=== PATIENT | male | born 1945 | race Caucasian/White ===

== ENCOUNTER 2016-09-08 20:39 | Inpatient (IN) | payer MEDICARE, MEDICAID ==
[~2016-09-08] VITALS: Ht 170.2 cm; Wt 62.6 kg
[~2016-09-08 20:39] MED LIST: ALBU2.5V38 HHN; AMIN887L PO; DIVA500T2 PO; DOCU-141 PO; HYDR1TAB70 PO; LATA2.5D2 EACHEYE; METO25TA50 PO; MULT1TAB11 PO; OMEP20CA10 PO; TEMA15CA5 PO; [UNRECOGNIZED DRUG - CODE] PO
--- NOTE | 2016-09-08 20:55 | NUR ---
Pt ambulated to room with slow steady shuffled gait. Pt brought in by DTS on a 5150 for SI. Pt requires medical clearance before transferring to mental health unit. Pt resting in position of comfrt for self. No obvious signs of distress at this time. Pt calm and cooperative. Sitter at bedside.
[2016-09-08 22:24] LABS: BASOPHILS % (AUTO) 0.4 % (0.0-2.0); EOSINOPHILS # (AUTO) 0.2 K/uL (0.0-0.7); EOSINOPHILS % (AUTO) 2.9 % (0.0-7.0); HEMATOCRIT 39.1 % (40-50); HEMOGLOBIN 12.8 G/DL (14.0-18.0); LYMPHOCYTES # (AUTO) 1.4 K/UL (0.8-4.8); LYMPHOCYTES % (AUTO) 24.5 % (20.5-51.5); MEAN CORPUSCULAR HEMOGLOBIN 27.7 UUG (27.0-31.0); MEAN CORPUSCULAR HGB CONC 33 g/dL (32.0-37.0); MEAN CORPUSCULAR VOLUME 84.8 FL (82.0-92.0); MONOCYTES # (AUTO) 0.3 K/UL (0.1-1.30); MONOCYTES % (AUTO) 5.8 % (0.0-11.0); NEUTROPHILS % (AUTO) 66.4 % (38.5-71.5); PLATELET COUNT (AUTO) 153 K/UL (150-450); RED BLOOD CELL COUNT(AUTO) 4.62 MIL/UL (4.7-6.1); WHITE BLOOD COUNT (AUTO) 5.9 K/UL (4.0-11.2)
[2016-09-08 22:26] LABS: CARBON DIOXIDE 29 mmol/L (21-32); CHLORIDE 107 mmol/L (98-107); CREATININE 0.8 mg/dL (0.6-1.3); GLUCOSE 99 mg/dL (74-106); UREA NITROGEN, BLOOD 11 mg/dL (7-18)
[2016-09-08 22:27] LABS: ETHANOL < 3 MG/DL (0-0)
[2016-09-08 22:32] LABS: ACETAMINOPHEN < 2.0 ug/mL (10-30); ALANINE AMINOTRANSFERASE 14 U/L (16-63); ALKALINE PHOSPHATASE 83 U/L (50-136); ASPARTATE AMINOTRANSFERASE 16 U/L (15-37); BILIRUBIN,DIRECT 0.1 mg/dL (0.0-0.2); BILIRUBIN,TOTAL 0.4 mg/dL (0.2-1.0); TOTAL PROTEIN, SERUM 7.4 g/dL (6.4-8.2)
[2016-09-08] MEDS ORDERED: GABA-532 PO (22:46)
[2016-09-08] MEDS ORDERED: OLAN7.5T3 PO (22:46)
[2016-09-08] MEDS ORDERED: GABA-534 PO (22:46)
[2016-09-08] MEDS ORDERED: CALC-1095 PO (22:46)
--- NOTE | 2016-09-08 22:55 | NUR ---
Pt resting in position of comfort for self. Pt c/o leg pain, MD notified. Awaiting further orders.
--- NOTE | 2016-09-08 22:58 | NUR ---
Pt medically cleared for admission per Dr. Cruz
[2016-09-08] MEDS ORDERED: HYDROCODONE/APAP 5-325MG TABLET PO ONE (23:00)
--- NOTE | 2016-09-08 23:12 | NUR ---
Report called to ANIKA Evans. Preparing to transfer pt to the floor
[2016-09-08 23:16] LABS: THYROID STIMULATING HORMONE 1.721 mIU/mL (0.358-3.740)
[2016-09-08] MEDS ORDERED: HYDROCODONE/APAP 5-325MG TABLET ONE (23:18)
--- NOTE | 2016-09-08 23:40 | NUR ---
Report received from ANKIA Cueva. Patient arrived on unit awake and alert. Patient is able to verbalize needs. Patients vital signs are WNL. PERRLA. Respirations are clear ,symmetrical and unlabored. No pain reported when asked. Skin is warm ,pink, dry and intact. No signs of distress. will continue to monitor
[2016-09-08 23:42] VITALS: BP 140/84
[2016-09-09] MEDS ORDERED: CLONAZEPAM 0.5 MG TABLET PO PRN (00:30)
[2016-09-09] MEDS ORDERED: MAG HYDROX/AL HYDROX/SIMETH 30 ML LIQUID UDC PO PRN (00:30)
[2016-09-09] MEDS ORDERED: ACETAMINOPHEN 325 MG TABLET PO PRN (00:30)
[2016-09-09] MEDS ORDERED: MAGNESIUM HYDROXIDE 30 ML LIQUID UDC PO PRN (00:30)
[2016-09-09] MEDS ORDERED: TEMAZEPAM 7.5 MG CAPSULE PO PRN (00:30)
[2016-09-09 07:30] VITALS: BP 122/61
--- NOTE | 2016-09-09 11:17 | NUR ---
GPS.RN- [facility] NOTIFIED OF MED RECON THIS AM. PATIENT WITH PAIN THIS AM, BACK PAIN , PAIN IS 7 OUT OF 10, REFUSED TYLENOL. SPOKE WITH [facility] N.P., ONE TIME ORDER RECEIVED FOR NORCO 5-325MG PO ONCE
[2016-09-09] MEDS ORDERED: HYDROCODONE/APAP 5-325MG TABLET PO ONE (11:30)
--- NOTE | 2016-09-09 15:29 | NUR ---
initial discharge instructions: Pt was residing at [facility] [[address] [place], [place]].Per pt,he does not want to return back the facility,and is interested in being placed at a Board and Care.There is no contact information in the chart regarding pt's EVELIN.SW will speak with pt and MD regarding appropriate discharge plans.SW will form a safe and proper discharge.
[2016-09-09 16:00] VITALS: BP 108/71
[2016-09-09] MEDS: ESCITALOPRAM OXALATE 10 MG TABLET PO SCH (16:17)
[2016-09-09] MEDS: OLANZAPINE 5 MG TABLET PO SCH (16:17)
[2016-09-09] MEDS: HYDROCODONE/APAP 5-325MG TABLET PO PRN (17:58)
[2016-09-09] MEDS: DIVALPROEX ER 500 MG TAB.SR.24H PO SCH (20:32)
[2016-09-09] MEDS: ATORVASTATIN 20 MG TABLET PO SCH (20:32)
[2016-09-09 21:05] VITALS: BP 111/73
[2016-09-10 07:30] VITALS: BP_SYST 111; BP_SYST 112; BP_DIAS 68
[2016-09-10] MEDS: OLANZAPINE 5 MG TABLET PO SCH ×2 (08:24→16:28)
[2016-09-10] MEDS: DOCUSATE SODIUM 100 MG CAPSULE PO SCH (08:24)
[2016-09-10] MEDS: ASPIRIN 81 MG TAB.CHEW PO SCH (08:25)
[2016-09-10] MEDS: CALCIUM CARB/VITAMIN D 500MG-200UNITS TABLET PO SCH (08:25)
[2016-09-10] MEDS: ESCITALOPRAM OXALATE 10 MG TABLET PO SCH (08:25)
[2016-09-10] MEDS: HYDROCODONE/APAP 5-325MG TABLET PO PRN ×3 (08:25→21:32)
[2016-09-10] MEDS: GABAPENTIN 300 MG CAPSULE PO SCH ×3 (08:25→16:28)
[2016-09-10 15:50] VITALS: BP_SYST 100; BP_SYST 113; BP_DIAS 75; BP_DIAS 76
[2016-09-10] MEDS: DIVALPROEX ER 500 MG TAB.SR.24H PO SCH (20:07)
[2016-09-10] MEDS: ATORVASTATIN 20 MG TABLET PO SCH (20:07)
[2016-09-10 20:59] VITALS: BP 128/84
[2016-09-11 07:30] VITALS: BP 102/56
[2016-09-11] MEDS: OLANZAPINE 5 MG TABLET PO SCH ×2 (08:51→17:07)
[2016-09-11] MEDS: ASPIRIN 81 MG TAB.CHEW PO SCH (08:51)
[2016-09-11] MEDS: GABAPENTIN 300 MG CAPSULE PO SCH ×3 (08:51→17:07)
[2016-09-11] MEDS: CALCIUM CARB/VITAMIN D 500MG-200UNITS TABLET PO SCH (08:51)
[2016-09-11] MEDS: DOCUSATE SODIUM 100 MG CAPSULE PO SCH (08:51)
[2016-09-11] MEDS: ESCITALOPRAM OXALATE 10 MG TABLET PO SCH (08:51)
[2016-09-11] MEDS: HYDROCODONE/APAP 5-325MG TABLET PO PRN ×2 (13:02→21:40)
[2016-09-11 16:00] VITALS: BP 122/76
[2016-09-11] MEDS: ATORVASTATIN 20 MG TABLET PO SCH (20:17)
[2016-09-11] MEDS: DIVALPROEX ER 500 MG TAB.SR.24H PO SCH (20:17)
[2016-09-11 21:44] VITALS: BP 128/84
[2016-09-12 08:30] VITALS: BP 110/66
[2016-09-12] MEDS: GABAPENTIN 300 MG CAPSULE PO SCH ×3 (08:40→16:17)
[2016-09-12] MEDS: OLANZAPINE 5 MG TABLET PO SCH ×2 (08:41→16:17)
[2016-09-12] MEDS: ESCITALOPRAM OXALATE 10 MG TABLET PO SCH (08:41)
[2016-09-12] MEDS: ASPIRIN 81 MG TAB.CHEW PO SCH (08:41)
[2016-09-12] MEDS: DOCUSATE SODIUM 100 MG CAPSULE PO SCH (08:41)
[2016-09-12] MEDS: CALCIUM CARB/VITAMIN D 500MG-200UNITS TABLET PO SCH (08:41)
[2016-09-12] MEDS: HYDROCODONE/APAP 5-325MG TABLET PO PRN ×2 (09:42→15:49)
[2016-09-12 16:00] VITALS: BP 99/75
[2016-09-12] MEDS: ATORVASTATIN 20 MG TABLET PO SCH (20:26)
[2016-09-12] MEDS: DIVALPROEX ER 500 MG TAB.SR.24H PO SCH (20:26)
[2016-09-12 20:57] VITALS: BP 112/60
[2016-09-13 07:30] VITALS: BP 116/74
[2016-09-13] MEDS: DOCUSATE SODIUM 100 MG CAPSULE PO SCH (08:42)
[2016-09-13] MEDS: ASPIRIN 81 MG TAB.CHEW PO SCH (08:42)
[2016-09-13 08:43] LABS: CARBON DIOXIDE 30 mmol/L (21-32); CHLORIDE 108 mmol/L (98-107); CREATININE 0.7 mg/dL (0.6-1.3); GLUCOSE 86 mg/dL (74-106); MAGNESIUM 1.6 mg/dL (1.8-2.4); POTASSIUM 4.1 mmol/L (3.5-5.1); UREA NITROGEN, BLOOD 8 mg/dL (7-18)
[2016-09-13] MEDS: CALCIUM CARB/VITAMIN D 500MG-200UNITS TABLET PO SCH (08:43)
[2016-09-13] MEDS: OLANZAPINE 5 MG TABLET PO SCH ×2 (08:43→16:48)
[2016-09-13] MEDS: GABAPENTIN 300 MG CAPSULE PO SCH ×3 (08:43→16:48)
[2016-09-13] MEDS: HYDROCODONE/APAP 5-325MG TABLET PO PRN ×2 (08:48→15:10)
[2016-09-13] MEDS ORDERED: ESCITALOPRAM OXALATE 10 MG TABLET PO SCH (09:00)
[2016-09-13 09:13] LABS: BASOPHILS % (AUTO) 0.6 % (0.0-2.0); EOSINOPHILS # (AUTO) 0.1 K/uL (0.0-0.7); EOSINOPHILS % (AUTO) 2.2 % (0.0-7.0); HEMATOCRIT 39.3 % (40-50); HEMOGLOBIN 12.7 G/DL (14.0-18.0); LYMPHOCYTES % (AUTO) 17.6 % (20.5-51.5); MEAN CORPUSCULAR HEMOGLOBIN 27.6 UUG (27.0-31.0); MEAN CORPUSCULAR HGB CONC 32 g/dL (32.0-37.0); MEAN CORPUSCULAR VOLUME 85.2 FL (82.0-92.0); MONOCYTES # (AUTO) 0.5 K/UL (0.1-1.30); MONOCYTES % (AUTO) 7.7 % (0.0-11.0); NEUTROPHILS # (AUTO) 4.3 K/UL (1.8-8.9); NEUTROPHILS % (AUTO) 71.9 % (38.5-71.5); PLATELET COUNT (AUTO) 118 K/UL (150-450); RED BLOOD CELL COUNT(AUTO) 4.61 MIL/UL (4.7-6.1); WHITE BLOOD COUNT (AUTO) 5.9 K/UL (4.0-11.2)
[2016-09-13] MEDS ORDERED: MAGNESIUM OXIDE 400 MG TABLET PO ONE (15:00)
[2016-09-13 15:35] VITALS: BP 107/64
[2016-09-13] MEDS: ATORVASTATIN 20 MG TABLET PO SCH (20:11)
[2016-09-13] MEDS: DIVALPROEX ER 500 MG TAB.SR.24H PO SCH (20:11)
[2016-09-13 20:15] VITALS: BP 101/71
[2016-09-14 07:30] VITALS: BP 112/61
[2016-09-14] MEDS: CALCIUM CARB/VITAMIN D 500MG-200UNITS TABLET PO SCH (08:53)
[2016-09-14] MEDS: ASPIRIN 81 MG TAB.CHEW PO SCH (08:53)
[2016-09-14] MEDS: DOCUSATE SODIUM 100 MG CAPSULE PO SCH (08:53)
[2016-09-14] MEDS: GABAPENTIN 300 MG CAPSULE PO SCH ×3 (08:53→16:04)
[2016-09-14] MEDS: ESCITALOPRAM OXALATE 10 MG TABLET PO SCH (08:53)
[2016-09-14] MEDS: OLANZAPINE 5 MG TABLET PO SCH ×2 (08:53→16:04)
[2016-09-14] MEDS: HYDROCODONE/APAP 5-325MG TABLET PO PRN ×3 (08:54→21:10)
[2016-09-14 15:47] VITALS: BP 112/54
[2016-09-14 20:00] VITALS: BP 128/75
[2016-09-14] MEDS: ATORVASTATIN 20 MG TABLET PO SCH (20:14)
[2016-09-14] MEDS: DIVALPROEX ER 500 MG TAB.SR.24H PO SCH (20:14)
[2016-09-14 21:38] LABS: *BILIRUBIN,URIN NEGATIVE (NEGATIVE); *BLOOD, URINE Trace-intact (NEGATIVE); *COLOR,URINE YELLOW (YELLOW); *KETONES,URINE NEGATIVE (NEGATIVE); *PROTEIN,URINE NEGATIVE (NEGATIVE); *UROBILINOGEN,URINE 0.2 E.U./dl (NORMAL); LEUKOCYTE ESTERASE ,URINE 2+ (NEGATIVE); NITRITE, URINE NEGATIVE (NEGATIVE); UGLUCOSE NEGATIVE (NEGATIVE)
[2016-09-14 21:46] LABS: *CLARITY,URINE HAZY (CLEAR)
[2016-09-14 22:03] LABS: BACTERIA,URINE FEW /HPF (NONE SEEN); SQUAMOUS EPITHELIAL CELL,UR FEW /HPF (NONE SEEN); WBC,URINE 50-80 /HPF (0-3)
[2016-09-15 07:30] VITALS: BP 108/61
[2016-09-15] MEDS: GABAPENTIN 300 MG CAPSULE PO SCH ×3 (08:08→16:50)
[2016-09-15] MEDS: ASPIRIN 81 MG TAB.CHEW PO SCH (08:08)
[2016-09-15] MEDS: CALCIUM CARB/VITAMIN D 500MG-200UNITS TABLET PO SCH (08:08)
[2016-09-15] MEDS: DOCUSATE SODIUM 100 MG CAPSULE PO SCH (08:08)
[2016-09-15] MEDS: OLANZAPINE 5 MG TABLET PO SCH ×2 (08:08→16:50)
[2016-09-15] MEDS: ESCITALOPRAM OXALATE 10 MG TABLET PO SCH (08:08)
[2016-09-15] MEDS: HYDROCODONE/APAP 5-325MG TABLET PO PRN ×3 (10:04→21:41)
[2016-09-15] MEDS: CEPHALEXIN MONOHYDRATE 500 MG CAPSULE PO SCH ×3 (11:31→21:36)
[2016-09-15 16:00] VITALS: BP 97/54
[2016-09-15 20:54] VITALS: BP 102/60
[2016-09-15] MEDS: ATORVASTATIN 20 MG TABLET PO SCH (21:36)
[2016-09-15] MEDS: DIVALPROEX ER 500 MG TAB.SR.24H PO SCH (21:36)
--- NOTE | 2016-09-15 22:30 | NUR ---
received to care, lying in bed, pleasant upon approach. remains isolative, but able to make his needs known, to staff. compliant with medications, and staff direction. PRN norco was given at 2140, for lower back pain, 7/10 on pain scale. as of 2229. he appears to be asleep. no distress noted. will continue to monitor closely.
--- NOTE | 2016-09-16 06:00 | NUR ---
slept 8.5 hours. currently being assisted with a shower, and AM care. no distress noted. will continue to monitor closely.
[2016-09-16] MEDS: CEPHALEXIN MONOHYDRATE 500 MG CAPSULE PO SCH ×3 (06:01→21:21)
[2016-09-16] MEDS: HYDROCODONE/APAP 5-325MG TABLET PO PRN ×3 (06:02→17:52)
[2016-09-16 07:30] VITALS: BP 117/73
[2016-09-16] MEDS: GABAPENTIN 300 MG CAPSULE PO SCH ×3 (08:04→16:21)
[2016-09-16] MEDS: CALCIUM CARB/VITAMIN D 500MG-200UNITS TABLET PO SCH (08:04)
[2016-09-16] MEDS: DOCUSATE SODIUM 100 MG CAPSULE PO SCH (08:04)
[2016-09-16] MEDS: ESCITALOPRAM OXALATE 10 MG TABLET PO SCH (08:04)
[2016-09-16] MEDS: OLANZAPINE 5 MG TABLET PO SCH ×2 (08:04→16:21)
[2016-09-16] MEDS: ASPIRIN 81 MG TAB.CHEW PO SCH (08:04)
[2016-09-16 16:09] VITALS: BP 129/78
[2016-09-16 19:30] VITALS: BP 110/66
[2016-09-16] MEDS: ATORVASTATIN 20 MG TABLET PO SCH (21:20)
[2016-09-16] MEDS: DIVALPROEX ER 500 MG TAB.SR.24H PO SCH (21:21)
--- NOTE | 2016-09-16 22:00 | NUR ---
received to care, lying in bed, pleasant upon approach. denies SI, or the desire to harm self. remains isolative, but able to make his needs known, to staff. compliant with medications, and staff direction. as of 2199. he appears to be asleep. no distress noted. will continue to monitor closely.
[2016-09-17] MEDS: CEPHALEXIN MONOHYDRATE 500 MG CAPSULE PO SCH ×2 (06:06→14:07)
[2016-09-17] MEDS: HYDROCODONE/APAP 5-325MG TABLET PO PRN ×3 (06:11→18:59)
--- NOTE | 2016-09-17 06:11 | NUR ---
pt is now awake. slept 7.5 hours, total. c/o pain to the bilateral legs, 8/10 on pain scale; PRN norco was given at this time.
[2016-09-17 07:30] VITALS: BP 123/72
[2016-09-17 07:45] LABS: BASOPHILS % (AUTO) 0.8 % (0.0-2.0); EOSINOPHILS # (AUTO) 0.1 K/uL (0.0-0.7); EOSINOPHILS % (AUTO) 3.2 % (0.0-7.0); HEMATOCRIT 38.9 % (40-50); HEMOGLOBIN 12.9 G/DL (14.0-18.0); LYMPHOCYTES # (AUTO) 1.2 K/UL (0.8-4.8); LYMPHOCYTES % (AUTO) 26.8 % (20.5-51.5); MEAN CORPUSCULAR HEMOGLOBIN 27.9 UUG (27.0-31.0); MEAN CORPUSCULAR HGB CONC 33 g/dL (32.0-37.0); MONOCYTES # (AUTO) 0.5 K/UL (0.1-1.30); MONOCYTES % (AUTO) 10.2 % (0.0-11.0); NEUTROPHILS # (AUTO) 2.7 K/UL (1.8-8.9); PLATELET COUNT (AUTO) 101 K/UL (150-450); RED BLOOD CELL COUNT(AUTO) 4.63 MIL/UL (4.7-6.1); WHITE BLOOD COUNT (AUTO) 4.5 K/UL (4.0-11.2)
[2016-09-17 08:22] LABS: ALANINE AMINOTRANSFERASE 16 U/L (16-63); ALKALINE PHOSPHATASE 83 U/L (50-136); ASPARTATE AMINOTRANSFERASE 16 U/L (15-37); BILIRUBIN,TOTAL 0.4 mg/dL (0.2-1.0); CARBON DIOXIDE 30 mmol/L (21-32); CHLORIDE 107 mmol/L (98-107); CREATININE 0.7 mg/dL (0.6-1.3); GLUCOSE 87 mg/dL (74-106); MAGNESIUM 1.7 mg/dL (1.8-2.4); POTASSIUM 4.1 mmol/L (3.5-5.1); TOTAL PROTEIN, SERUM 7.1 g/dL (6.4-8.2); UREA NITROGEN, BLOOD 9 mg/dL (7-18)
[2016-09-17] MEDS: DOCUSATE SODIUM 100 MG CAPSULE PO SCH ×2 (09:00→10:08)
[2016-09-17] MEDS: ESCITALOPRAM OXALATE 10 MG TABLET PO SCH (10:07)
[2016-09-17] MEDS: GABAPENTIN 300 MG CAPSULE PO SCH ×3 (10:07→17:14)
[2016-09-17] MEDS: CALCIUM CARB/VITAMIN D 500MG-200UNITS TABLET PO SCH (10:07)
[2016-09-17] MEDS: OLANZAPINE 5 MG TABLET PO SCH ×2 (10:07→17:20)
[2016-09-17] MEDS: ASPIRIN 81 MG TAB.CHEW PO SCH (10:08)
[2016-09-17] MEDS ORDERED: MAGNESIUM OXIDE 400 MG TABLET PO ONE (14:15)
[2016-09-17 17:08] VITALS: BP 101/65
[2016-09-17] MEDS: SULFAMETH/TRIMETH 800/160 MG TABLET PO SCH ×2 (17:13→20:22)
[2016-09-17 19:51] VITALS: BP 130/73
[2016-09-17] MEDS: DIVALPROEX ER 500 MG TAB.SR.24H PO SCH (20:22)
[2016-09-17] MEDS: ATORVASTATIN 20 MG TABLET PO SCH (20:22)
[2016-09-18] MEDS: HYDROCODONE/APAP 5-325MG TABLET PO PRN ×3 (04:09→18:06)
--- NOTE | 2016-09-18 05:09 | NUR ---
GRIS salinas wa sgiven at 0409 for 09/20 pain to bilateral legs. as of 508, he denies any pain or discomfort.
--- NOTE | 2016-09-18 06:15 | NUR ---
slept 9 hours, total. assisted with AM care, and shower. currently lying in bed. no distress noted. will continue to monitor closely.
[2016-09-18 07:55] VITALS: BP 112/69
[2016-09-18] MEDS: ESCITALOPRAM OXALATE 10 MG TABLET PO SCH (08:06)
[2016-09-18] MEDS: SULFAMETH/TRIMETH 800/160 MG TABLET PO SCH ×2 (08:06→21:27)
[2016-09-18] MEDS: GABAPENTIN 300 MG CAPSULE PO SCH ×3 (08:06→16:52)
[2016-09-18] MEDS: ASPIRIN 81 MG TAB.CHEW PO SCH (08:06)
[2016-09-18] MEDS: CALCIUM CARB/VITAMIN D 500MG-200UNITS TABLET PO SCH (08:07)
[2016-09-18] MEDS: OLANZAPINE 5 MG TABLET PO SCH ×2 (08:07→16:52)
[2016-09-18] MEDS: DOCUSATE SODIUM 100 MG CAPSULE PO SCH (08:10)
[2016-09-18 20:14] VITALS: BP 96/52
[2016-09-18] MEDS: ATORVASTATIN 20 MG TABLET PO SCH (21:27)
[2016-09-18] MEDS: DIVALPROEX ER 500 MG TAB.SR.24H PO SCH (21:27)
[2016-09-19 07:30] VITALS: BP 123/70
[2016-09-19] MEDS: GABAPENTIN 300 MG CAPSULE PO SCH ×3 (08:38→16:45)
[2016-09-19] MEDS: OLANZAPINE 5 MG TABLET PO SCH ×2 (08:38→16:45)
[2016-09-19] MEDS: ASPIRIN 81 MG TAB.CHEW PO SCH (08:39)
[2016-09-19] MEDS: HYDROCODONE/APAP 5-325MG TABLET PO PRN ×2 (08:39→14:18)
[2016-09-19] MEDS: DOCUSATE SODIUM 100 MG CAPSULE PO SCH (08:39)
[2016-09-19] MEDS: ESCITALOPRAM OXALATE 10 MG TABLET PO SCH (08:39)
[2016-09-19] MEDS: CALCIUM CARB/VITAMIN D 500MG-200UNITS TABLET PO SCH (08:39)
[2016-09-19] MEDS: SULFAMETH/TRIMETH 800/160 MG TABLET PO SCH ×2 (08:39→20:16)
[2016-09-19 15:50] VITALS: BP 110/70
[2016-09-19] MEDS: ATORVASTATIN 20 MG TABLET PO SCH (20:16)
[2016-09-19] MEDS: DIVALPROEX ER 500 MG TAB.SR.24H PO SCH (20:16)
[2016-09-19 20:35] VITALS: BP 116/66
--- NOTE | 2016-09-19 21:07 | NUR ---
PATIENT RECEIVED IN BED AWAKE. PATIENT CALM AND PLEASENT UPON APPROACH. PATIENT DENIES SUICIDAL IDEATION, WILL CONTINUE TO MONITOR CHANGE IN BEHAVIOR. PATIENT ENCOURAGED TO EXPRESS FEELINGS AND CONCERNS. PATIENT COMPLAINT WITH MEDICATION. NO AGGRESSIVE OR COMBATIVE BEHAVIOR NOTED WILL CONTINUE TO MONITOR. BED IN LOWEST POSITION, BED LOCKED.
[2016-09-20] MEDS: HYDROCODONE/APAP 5-325MG TABLET PO PRN ×3 (03:33→15:20)
[2016-09-20 07:30] VITALS: BP 102/63
[2016-09-20] MEDS: ESCITALOPRAM OXALATE 10 MG TABLET PO SCH (09:11)
[2016-09-20] MEDS: DOCUSATE SODIUM 100 MG CAPSULE PO SCH (09:11)
[2016-09-20] MEDS: ASPIRIN 81 MG TAB.CHEW PO SCH (09:11)
[2016-09-20] MEDS: CALCIUM CARB/VITAMIN D 500MG-200UNITS TABLET PO SCH (09:11)
[2016-09-20] MEDS: OLANZAPINE 5 MG TABLET PO SCH ×2 (09:11→16:11)
[2016-09-20] MEDS: SULFAMETH/TRIMETH 800/160 MG TABLET PO SCH (09:11)
[2016-09-20] MEDS: GABAPENTIN 300 MG CAPSULE PO SCH ×3 (09:11→16:11)
--- NOTE | 2016-09-20 12:09 | NUR ---
DC Note: Patient will be discharged today to [facility] [[address] [place] [address]; [phone]] via ambulance at 1:00 pm. Please schedule an ambulance for the patient. Spoke with CJ at the facility who stated they would accept the patient today. Patient is aware and agreeable with discharge plans. Patient has no family/next of kin to contact. Patient will follow-up with (Die Tester) and (Psychiatrist) at the facility.
[2016-09-20 14:30] VITALS: BP 110/65
--- NOTE | 2016-09-20 15:35 | NUR ---
GPS: Nursing Notes: Refusing Pictures: Patient refusing to be taken pictures, stated, "No, thank you.. I am leaving..", "You got pictures already..", continue with discharge process.
[2016-09-20 16:30] VITALS: BP 110/65
--- NOTE | 2016-09-20 16:30 | NUR ---
GPS: Nursing Notes: Discharge Notes: Patient is awake and responding to his name, cooperative and pleasant with staff, compliant with his medications, denies any SI/HI, denies any AH/VH, denies any pain or discomfort, denies any SOB, discharge to [facility] [[address] [place] [address] ], report given to nurse Marylou LVN, transported to facility via ambulance, took all his belonging with him, Dr. Hitchcock (psychiatrist) and Dr. Beach (wildlife technician) will continue with aftercare at the facility.
== END 2016-09-20 16:30 | DRG 885 ==
LOC: ER 20:41 → GPS 23:27
PROVIDERS: ADMIT Psychiatry & Neurology Psychiatry; ATTEND Contractor
DX: F25.9 Schizoaffective disorder, unspecified (principal); N39.0 Urinary tract infection, site not specified; R45.851 Suicidal ideations; I73.9 Peripheral vascular disease, unspecified; K21.9 Gastro-esophageal reflux disease without esophagitis; Z89.432 Acquired absence of left foot; Z89.431 Acquired absence of right foot; Z86.73 Personal history of transient ischemic attack (TIA), and cerebral infarction without residual deficits; G89.4 Chronic pain syndrome; D63.8 Anemia in other chronic diseases classified elsewhere; B96.89 Other specified bacterial agents as the cause of diseases classified elsewhere; I10 Essential (primary) hypertension; E83.42 Hypomagnesemia; D69.6 Thrombocytopenia, unspecified; G47.00 Insomnia, unspecified; H40.9 Unspecified glaucoma; I67.2 Cerebral atherosclerosis; J45.909 Unspecified asthma, uncomplicated; Z79.899 Other long term (current) drug therapy; E78.5 Hyperlipidemia, unspecified; M19.049 Primary osteoarthritis, unspecified hand
CPT/HCPCS: 36415; 70030-TC; 70450; 71010; 83735; 84100; 84443; 85025; 85730; 87077; 87086; 93005; 97116; 97161; 97530; G0480; G0480-TC